=== PATIENT | male | born 1990 | race African-American/Black ===

== ENCOUNTER 2018-04-30 19:32 | Emergency (ER) | payer OTHER, BC ==
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
[2018-04-30] MEDS ORDERED: KETOROLAC TROMETHAMINE 60 MG/2 ML SDV IM ONE (20:52)
[2018-04-30] MEDS ORDERED: DIPH/PERTUSS(ACELL)/TETANUS VAC/PF 0.5 ML SYR (>=10YO) IM ONE (20:52)
[2018-04-30 21:22] VITALS: BP 156/71
== END 2018-04-30 21:26 | disposition home or self-care (01) ==
LOC: ER 19:32
DX: S09.90XA Unspecified injury of head, initial encounter (principal); S19.9XXA Unspecified injury of neck, initial encounter; S00.81XA Abrasion of other part of head, initial encounter; M54.2 Cervicalgia; V43.52XA Car driver injured in collision with other type car in traffic accident, initial encounter; Y93.89 Activity, other specified; Y92.410 Unspecified street and highway as the place of occurrence of the external cause; Y99.9 Unspecified external cause status
CPT/HCPCS: 99283; 96372; 90471; 90715; J1885